=== PATIENT | female | born 1935 | race Caucasian/White ===

== ENCOUNTER 2021-07-24 15:10 | Emergency (ER) | payer OTHER ==
[2021-07-24] MEDS ORDERED: CEPHALEXIN500 MG PO (20:14)
== END 2021-07-24 20:35 | disposition home or self-care (01) ==
LOC: ER1 15:10
DX: S80.12XA Contusion of left lower leg, initial encounter (principal); I10 Essential (primary) hypertension; E10.9 Type 1 diabetes mellitus without complications; Z79.84 Long term (current) use of oral hypoglycemic drugs; W19.XXXA Unspecified fall, initial encounter
CPT/HCPCS: 99283

== ENCOUNTER → 2021-07-24 | Outpatient (CLI) | payer OTHER ==
[~2021-07-24] MED LIST: CEPHALEXIN500 MG PO
== END ==
LOC: KOH-I 11:45
DX: L02.416 Cutaneous abscess of left lower limb (principal)
CPT/HCPCS: 73590